=== PATIENT | female | born 1965 | race Caucasian/White ===

== ENCOUNTER → 2016-11-19 | Outpatient (CLI) | payer OTHER ==
--- NOTE | 2016-11-19 15:46 | BD ---
EXAMINATION TYPE: MG DEXA axial skeleton. DATE OF EXAM: 11/19/2016 7:40 AM COMPARISON: NONE CLINICAL HISTORY: Height: 62 IN Weight: 147 LBS FRAX RISK QUESTIONS: Alcohol (3 or more units per day): NO Family History (Parent hip fracture): NO Glucocorticoids (More than 3mos): NO (Ex: prednisone, prednisolone, methylprednisolone, dexamethasone, and hydrocortisone). History of Fracture in Adulthood: NO Secondary Osteoporosis: 1. Type 1 Diabetes: NO 2. Hyperthyroidism: NO 3. Menopause before 45: NO 4. Malnutrition: NO 5. Chronic liver disease: NO Rheumatoid Arthritis: NO Current Tobacco Use: NO RISK FACTORS HISTORY OF: History of Wrist Fracture: YES LEFT When: AGE 40 Surgery to Spine(LUMBAR)Wrist (left): When: LSPINE 2014 AND LEFT WRIST AGE 40 Active: YES Diet low in dairy products/other sources of calcium: YES Postmenopausal woman: AGE 44 ABLATION MEDICATIONS: Additional Medications: PROTONIX, ZOCOR, NEUROTIN EXAM MEASUREMENTS: Bone mineral densitometry was performed using the [employer] System. PT HAD L-SPINE SURGERY IN 2014 Bone mineral density about the R hip (g/cm2): 0.886 Bone mineral density about the L hip (g/cm2): 0.925 T Score values are as follows: -----R Neck: -1.1 -----L Neck: -0.8 -----R Intertrochanter: -0.6 -----L Intertrochanter: -0.2 Bone mineral density has: Decreased -2.0% since study of: 09/09/2014 IMPRESSION: Osteopenia (T Score between -2.5 and -1 as noted by T score values There is slightly increased risk of fracture and the patient may be considered for treatment. Re-Screen 1-2 years.RT HIP NOTE: T-SCORE=SD OF THE YOUNG ADULT MEAN.
== END | disposition home or self-care (01) ==
LOC: RADBDWWP 07:17
PROVIDERS: ATTEND Obstetrics & Gynecology
DX: M85.80 Other specified disorders of bone density and structure, unspecified site (principal)
CPT/HCPCS: 77080

== ENCOUNTER → 2017-10-29 | Outpatient (CLI) | payer OTHER ==
--- NOTE | 2017-10-29 14:18 | MM ---
Reason for exam: screening (asymptomatic). Last mammogram was performed 1 year and 1 month ago. Physical Findings: A clinical breast exam by your physician is recommended on an annual basis and results should be correlated with mammographic findings. MG 3D Screening Mammo W/Cad Bilateral CC and MLO view(s) were taken. Prior study comparison: September 16, 2016, bilateral MG 3d screening mammo w/cad. September 11, 2015, bilateral MG 3d screening mammo w/cad. The breast tissue is heterogeneously dense. This may lower the sensitivity of mammography. There is no discrete abnormality. No significant changes when compared with prior studies. ASSESSMENT: Negative, BI-RAD 1 RECOMMENDATION: Routine screening mammogram of both breasts in 1 year.
== END | disposition home or self-care (01) ==
LOC: RADMAMWWP 09:14
PROVIDERS: ATTEND Obstetrics & Gynecology
DX: Z12.31 Encounter for screening mammogram for malignant neoplasm of breast (principal)
CPT/HCPCS: 77063; 77067

== ENCOUNTER → 2018-05-18 | Outpatient (CLI) | payer OTHER ==
--- NOTE | 2018-05-18 13:39 | MR ---
EXAMINATION TYPE: MR brain wo/w con DATE OF EXAM: 05/18/2018 COMPARISON: None HISTORY: Tremors TECHNIQUE: Multiplanar, multisequence images of the brain and brainstem is performed without and with IV contras t, utilizing 7 mL intravenous Gadavist . FINDINGS: Diffusion weighted images demonstrate no evidence of a recent infarct or other diffusion ab normality. The ventricular system and cisternal spaces are normal in size and appearance. The brain volume is age appropriate. Midline structures demonstrate normal morphology. Cerebellar tonsils are low-lying in position measuring approximately 1 to 2 mm below the foramen magn um. Post contrast images demonstrate no abnormal enhancement. The dural venous sinuses appear patent. Changes of chronic sinusitis noted. There is a nodular area of enhancement involving the inferior margin of the left cerebellar hemispher e measuring 7 mm. Too small to characterize may be related to vascular structure. White matter: There are approximately 15 focal areas of abnormal signal scattered throughout the white matter. All measure 5 mm or less. No enhancing lesions. No callosal lesions. IMPRESSION: 1. Nonspecific white matter changes. Differential diagnosis would include remote microvascular ischem ia, migraine headaches, hypertension, or demyelinating process. 2. There is a nodular area area of enhancement involving the left inferior cerebellar hemisphere whic h may be secondary to vascular anomaly. Small enhancing lesion such as meningioma in the differential diagnosis. Recommend MRA. Additional, follow-up 6 month MRI recommended to confirm stability. 3. Low-lying cerebellar tonsils with no evidence of tonsillar beaking.
== END | disposition home or self-care (01) ==
LOC: RADMRIMAIN 12:40
PROVIDERS: ATTEND Family Medicine
DX: R90.89 Other abnormal findings on diagnostic imaging of central nervous system (principal); G93.89 Other specified disorders of brain
CPT/HCPCS: 70553; A9581

== ENCOUNTER → 2018-07-28 | Outpatient (CLI) | payer OTHER ==
--- NOTE | 2018-07-28 12:59 | US ---
EXAMINATION TYPE: US abdomen complete DATE OF EXAM: 07/28/2018 COMPARISON: US 2009 CLINICAL HISTORY: R94.5 Abn liver function test; prior US showed gallbladder wall polyp EXAM MEASUREMENTS: Liver Length: 13.2 cm Gallbladder Wall: 0.2 cm CBD: 0.6 cm Spleen: 8.6 cm Right Kidney: 9.3 x 4.8 x 3.5 cm Left Kidney: 10.3 x 5.5 x 5.5 cm Pancreas: Heterogeneous Liver: wnl Gallbladder: posterior wall polyp noted = 0.8 x 0.6 x 0.5cm Evidence for sonographic Nolasco's sign: no CBD: wnl Spleen: wnl Right Kidney: wnl Left Kidney: wnl Upper IVC: wnl Abd Aorta: size is wnl; hyperechoic intimal wall thickening noted mid aorta The visualized liver is homogenous. The intrahepatic portion of the IVC and proximal abdominal aorta are within normal limits. Common bile duct is unremarkable. No shadowing mobile gallstones are seen . The visualized portions of the pancreas are homogenous. The spleen is unremarkable. Kidneys are s ymmetric and free of hydronephrosis. No renal lesions are seen. IMPRESSION: No worrisome intrahepatic mass or intrahepatic ductal dilatation is seen.
== END | disposition home or self-care (01) ==
LOC: RADUSWWP 10:18
PROVIDERS: ATTEND Family Medicine
DX: R79.89 Other specified abnormal findings of blood chemistry (principal)
CPT/HCPCS: 76700

== ENCOUNTER → 2018-11-25 | Outpatient (CLI) | payer OTHER ==
--- NOTE | 2018-11-25 07:44 | MR ---
EXAMINATION TYPE: MR angio head wo con DATE OF EXAM: 11/25/2018 COMPARISON: MRI 05/18/2018 HISTORY: Tremors / Vascular malformation TECHNIQUE: Utilizing 3-D [id number] intracranial MRA of the [place] of [place] was performed. FINDINGS: The vertebrobasilar and carotid systems are patent. There is a persistent rounded area signal corres ponding to the CT abnormality within the left cerebellar hemisphere corresponding to the MRI abnormal ity. Appears be related to a branch of the left vertebral artery and a small aneurysm would be the di fferential diagnosis. Tiny vascular anomaly also a consideration. Findings stable from prior MRI. IMPRESSION: 1. Small focal area of rounded signal corresponding to the MRI abnormality is likely vascular in ez ology may represent a small aneurysm off a branch vessel of the left vertebral artery or possibly a t iny vascular anomaly. Measures approximately 3 mm. Recommend a follow-up 6 month MRI MRA to confirm stability and exclude other etiologies including tiny neoplasm.
== END | disposition home or self-care (01) ==
LOC: RADMRIMAIN 06:09
PROVIDERS: ATTEND Internal Medicine Sleep Medicine
DX: Q27.9 Congenital malformation of peripheral vascular system, unspecified (principal)
CPT/HCPCS: 70544

== ENCOUNTER → 2019-02-10 | Outpatient (CLI) | payer OTHER ==
--- NOTE | 2019-02-10 09:25 | BD ---
EXAMINATION TYPE: Axial Bone Density DATE OF EXAM: 02/10/2019 COMPARISON: 11/19/2016 CLINICAL HISTORY: Z13.820, M89.9 Height: 62 IN Weight: 146 LBS RISK FACTORS HISTORY OF: History of Wrist Fracture: YES LEFT WRIST When: AGE 40 Surgery to Spine\Wrist (left): L SPINE SURGERY AGE 49 ; LT WRIST SURGERY AGE 40 Family History of Osteoporosis: YES MOTHER Active: YES Diet low in dairy products/other sources of calcium: YES Postmenopausal woman: AGE 49 MEDICATIONS: Additional Medications: CALCIUM, SIMVASTATIN, PROTONIX, MAGNESIUM EXAM MEASUREMENTS: Bone mineral densitometry was performed using the [employer] System. Bone mineral density about the R hip (g/cm2): 0.837 Bone mineral density about the L hip (g/cm2): 0.880 T Score values are as follows: -----R Neck: -1.4 -----L Neck: -1.1 -----R Total: -0.5 -----L Total: -0.1 Bone mineral density has: DECREASED -6.5% since study of: 11/19/2016 Bone mineral density about the R Wrist (g/cm2): 0.670 T Score values are as follows: -----Dist. R+U: -0.3 -----Prox. R+U: 0.4 -----Radius total: -0.1 Bone mineral density BASELINE IMPRESSION: Osteopenia (T Score between -2.5 and -1). There is slightly increased risk of fracture and the patient may be considered for treatment. Re-Screen 2-5 years. NOTE: T-SCORE=SD OF THE YOUNG ADULT MEAN.
--- NOTE | 2019-02-11 10:34 | MM ---
Reason for exam: screening (asymptomatic). Last mammogram was performed 1 year and 3 months ago. History: Patient is postmenopausal. Physical Findings: A clinical breast exam by your physician is recommended on an annual basis and results should be correlated with mammographic findings. MG 3D Screening Mammo W/Cad Bilateral CC and MLO view(s) were taken. Prior study comparison: October 29, 2017, bilateral MG 3d screening mammo w/cad. September 16, 2016, bilateral MG 3d screening mammo w/cad. The breast tissue is heterogeneously dense. This may lower the sensitivity of mammography. No significant changes when compared with prior studies. ASSESSMENT: Benign, BI-RAD 2 RECOMMENDATION: Routine screening mammogram of both breasts in 1 year.
== END | disposition home or self-care (01) ==
LOC: RADMAMWWP 07:24
PROVIDERS: ATTEND Obstetrics & Gynecology
DX: Z12.31 Encounter for screening mammogram for malignant neoplasm of breast (principal); M85.851 Other specified disorders of bone density and structure, right thigh; M85.852 Other specified disorders of bone density and structure, left thigh
CPT/HCPCS: 77063; 77067; 77080

== ENCOUNTER 2019-10-11 12:06 | Emergency (ER) | payer OTHER ==
[2019-10-11 12:59] VITALS: PULSE 74; TEMP 98.1
[2019-10-11] MEDS ORDERED: SODIUM CHLORIDE 0.9% 1,000 ML IV STA (13:32)
[2019-10-11 13:48] LABS: Basophils % (A) 1 %; Eosinophils # (A) 0.1 k/uL (0-0.7); Eosinophils % (A) 1 %; HCT 42.5 % (34.0-46.0); HGB 14.4 gm/dL (11.4-16.0); Lymphocytes % (A) 23 %; MCHC 33.9 g/dL (31.0-37.0); MCV 85.4 fL (80.0-100.0); Mean Platelet Volume 6.7; Monocytes # (A) 0.3 k/uL (0-1.0); Monocytes % (A) 6 %; Neutrophils % (A) 67 %; Platelet Count 309 k/uL (150-450); RBC 4.98 m/uL (3.80-5.40); RDW 12.8 % (11.5-15.5); WBC 4.5 k/uL (3.8-10.6)
[2019-10-11 13:58] LABS: ALT 44 U/L (4-34); AST 38 U/L (14-36); African American GFR (CKD) >90 (>60 ml/min/1.73 sqM); Albumin 4.8 g/dL (3.5-5.0); Alkaline Phosphatase 71 U/L (38-126); Anion Gap 9 mmol/L; Blood Urea Nitrogen 12 mg/dL (7-17); Calcium 10.2 mg/dL (8.4-10.2); Carbon Dioxide 25 mmol/L (22-30); Chloride 106 mmol/L (98-107); Glucose 96 mg/dL (74-99); Non-African American GFR(CKD) >90 (>60 ml/min/1.73 sqM); Potassium 4.1 mmol/L (3.5-5.1); Sodium 140 mmol/L (137-145); Total Bilirubin 0.5 mg/dL (0.2-1.3); Total Protein 7.8 g/dL (6.3-8.2)
[2019-10-11 14:09] LABS: Appearance,Urine Clear (Clear); Bacteria,Urine Occasional /hpf; Bilirubin,Urine Negative (Negative); Blood,Urine Trace (Negative); Color,Urine Light Yellow; Glucose,Urine (UA) Negative (Negative); Ketones,Urine Negative (Negative); Leukocyte Esterase,Urine Negative (Negative); Nitrite,Urine Negative (Negative); Protein,Urine Negative (Negative); RBC,Urine <1 /hpf (0-5); Specific Gravity,Urine 1.007 (1.001-1.035); Squamous Epithelial Cell,Urine 3 /hpf (0-4); Urobilinogen,Urine <2.0 mg/dL (<2.0); WBC,Urine 2 /hpf (0-5)
--- NOTE | 2019-10-11 14:20 | US ---
EXAMINATION TYPE: US gallbladder DATE OF EXAM: 10/11/2019 COMPARISON: US 07/28/2018 CLINICAL HISTORY: epigastric pain, diarrhea. EXAM MEASUREMENTS: Liver Length: 15.1 cm Gallbladder Wall: 0.1 cm CBD: 0.6 cm Right Kidney: 10.0 x 4.5 x 4.7 cm Pancreas: Tail obscured by overlying bowel gas, visualized portions wnl Liver: wnl Gallbladder: Possible polyp visualized measuring 0.4 x 0.4 x 0.5 cm Evidence for sonographic Nolasco's sign: No CBD: wnl Right Kidney: No hydronephrosis or masses seen IMPRESSION: Gallbladder polyps suspected otherwise unremarkable study.
--- NOTE | 2019-10-11 14:42 | CT ---
EXAMINATION TYPE: CT abdomen pelvis w con DATE OF EXAM: 10/11/2019 COMPARISON: None HISTORY: Nausea, diarrhea and abdominal pain. CT DLP: 861.6 mGycm CONTRAST: CT scan of the abdomen and pelvis is performed without Oral Contrast and with IV Contrast, patient in jected with 100 mL of Isovue 300. FINDINGS: LUNG BASES-: No visible nodule. No infiltrate. LIVER/GB: No calcified gallstones. No space occupying hepatic lesion. Biliary tree is of normal ca liber. PANCREAS: No inflammation. No distinct mass. SPLEEN: No splenic enlargement. No lesion seen. ADRENALS: No nodule. No thickening. KIDNEYS/BLADDER: No hydronephrosis. No nephrolithiasis. No distinct renal mass. Urinary bladder g rossly unremarkable. BOWEL: Normal appendix. Mild distention and wall thickening proximal small bowel which may reflect s mall bowel enteritis. No evidence for abscess or free air. GENITAL ORGANS: No gross abnormality. LYMPH NODES: No greater than 1cm abdominal or pelvic lymph nodes are appreciated. AORTA: No significant abnormality. OSSEOUS STRUCTURES: Postoperative changes lumbar spine OTHER: No significant additional abnormality is seen. IMPRESSION: 1. Mild distention and wall thickening proximal small bowel which may reflect small bowel enteritis.
--- NOTE | 2019-10-11 15:25 | ED ---
Abdominal Pain HPI - General Chief Complaint: Abdominal Pain Stated Complaint: nausea/diarrhea/abdominal & back pain Time Seen by Provider: 10/11/19 12:55 Source: patient Mode of arrival: ambulatory Limitations: no limitations - History of Present Illness Initial Comments: The patient is a 54-year-old female with past medical history of GERD who presents to the emergency room with reported abdominal pain. States that it has been present for the past 2 months. She works at the hospital. States that she was at a case management meeting when she had a salad. States that several hours afterward she developed multiple episodes of nonbilious, nonbloody vomiting. States that this lasted for approximately 24 hours. She also had multiple episodes of nonbloody diarrhea. Denies additional sick contacts or recent travel. No antibiotic use. She has associated epigastric abdominal pain. She has not had any further vomiting since the onset 2 months ago however continues to have multiple episodes of diarrhea. States that every time she eats, she will have a bowel movement. She's her primary care doctor who did laboratory studies and a stool sample. Everything was "normal" according to the patient. They did schedule her for colonoscopy in October and gave her follow- up information for a GI doctor. Patient reports that she doesn't want to wait until this appointment. She is interested in having additional imaging done now to facilitate her workup. She denies any abnormal vaginal bleeding or discharge. She had an ablation 10 years ago no longer has menstrual cycles. Denies concern for such transmitted infections. Denies dysuria, hematuria or difficulty voiding. No fevers or chills. Denies any chest pain or shortness of breath. There are no other alleviating, precipitating or modifying factors - Related Data Home Medications Medication Instructions Recorded Confirmed Hydrocodone/Acetaminophen [[place] 1 each PO TID PRN 11/02/14 11/14/14 5-325] Pantoprazole Sodium [Protonix] 40 mg PO QAM 11/02/14 11/14/14 Simvastatin 20 mg PO HS 11/02/14 11/14/14 Previous Rx's Medication Instructions Recorded Diazepam [Valium] 5 mg PO TID PRN #40 tab 11/18/14 HYDROcodone/APAP 7.5-325MG [[place] 1 - 2 each PO Q4H PRN #90 tab 11/18/14 7.5-325] Dicyclomine [Bentyl] 10 mg PO TID PRN #20 capsule 10/11/19 Ondansetron Odt [Zofran Odt] 4 mg PO Q8HR PRN #10 tab 10/11/19 predniSONE 20 mg PO BID #10 tab 10/11/19 Allergies Allergy/AdvReac Type Severity Reaction Status Date / Time Iodinated Contrast Media Allergy Rash/Hives Verified 10/11/19 16:29 Review of Systems ROS Statement: Those systems with pertinent positive or pertinent negative responses have been documented in the HPI. ROS Other: All systems not noted in ROS Statement are negative. Past Medical History Past Medical History: GERD/Reflux, Hyperlipidemia Additional Past Medical History / Comment(s): BACK PAIN RADIATING DOWN RT LEG INTO FOOT,POST MENOPAUSAL > 2 YRS, brain aneursyn and brain tumor History of Any Multi-Drug Resistant Organisms: None Reported Past Surgical History: Back Surgery, Orthopedic Surgery, Uterine Ablation Additional Past Surgical History / Comment(s): LT FOREARM ORIF Past Anesthesia/Blood Transfusion Reactions: No Reported Reaction Past Psychological History: No Psychological Hx Reported Smoking Status: Former smoker Past Alcohol Use History: Occasional Past Drug Use History: None Reported - Past Family History Father Family Medical History: Cancer Additional Family Medical History / Comment(s): LUNG General Exam Limitations: no limitations General appearance: alert, in no apparent distress Head exam: Present: atraumatic, normocephalic, normal inspection Eye exam: Present: normal appearance, PERRL, EOMI. Absent: scleral icterus, conjunctival injection, periorbital swelling ENT exam: Present: normal exam, mucous membranes moist Neck exam: Present: normal inspection. Absent: tenderness, meningismus, lymphadenopathy Respiratory exam: Present: normal lung sounds bilaterally. Absent: respiratory distress, wheezes, rales, rhonchi, stridor Cardiovascular Exam: Present: regular rate, normal rhythm, normal heart sounds. Absent: systolic murmur, diastolic murmur, rubs, gallop, clicks GI/Abdominal exam: Present: soft, tenderness (right upper quadrant abdominal tenderness), normal bowel sounds. Absent: distended, guarding, rebound, rigid Extremities exam: Present: normal inspection, full ROM, normal capillary refill. Absent: tenderness, pedal edema, joint swelling, calf tenderness Back exam: Present: normal inspection Neurological exam: Present: alert, oriented X3, CN II-XII intact Psychiatric exam: Present: normal affect, normal mood Skin exam: Present: warm, dry, intact, normal color. Absent: rash Course Vital Signs 10/11/19 10/11/19 10/11/19 12:55 12:59 13:59 Temperature 98.1 F Pulse Rate 74 Respiratory 18 20 16 Rate Blood Pressure 158/90 O2 Sat by Pulse 98 Oximetry 10/11/19 10/11/19 10/11/19 14:11 14:29 14:30 Temperature Pulse Rate Respiratory Rate Blood Pressure 149/90 O2 Sat by Pulse 96 100 99 Oximetry 10/11/19 10/11/19 10/11/19 14:40 14:50 14:59 Temperature Pulse Rate Respiratory 16 Rate Blood Pressure O2 Sat by Pulse 98 99 Oximetry 10/11/19 10/11/19 10/11/19 15:00 15:10 15:20 Temperature Pulse Rate Respiratory Rate Blood Pressure 150/92 O2 Sat by Pulse 98 99 99 Oximetry 10/11/19 10/11/19 10/11/19 15:30 15:40 15:59 Temperature Pulse Rate Respiratory Rate Blood Pressure O2 Sat by Pulse 99 98 94 L Oximetry 10/11/19 10/11/19 16:23 16:56 Temperature Pulse Rate 74 Respiratory 20 Rate Blood Pressure 152/94 O2 Sat by Pulse 94 L 98 Oximetry Medical Decision Making - Medical Decision Making Upon arrival the patient was placed into room 17. A thorough history of physical exam was performed. IV was established. The patient's was started on a liter bolus of normal saline. I did offer her something for nausea and diarrhea however the patient refused. I did conduct laboratory studies. CBC is normal. Chemistries show a mildly elevated AST at 38 and ALT at 44. Urinalysis shows trace blood with occasional bacteria. Patient does not have symptoms of urinary tract infection and therefore we will hold off until culture returns. CT of the patient's abdomen and pelvis demonstrates mild distention and wall thickening of the proximal small bowel which may relate to small bowel enteritis. Gallbladder ultrasound demonstrates gallbladder polyps. I discussed these results with the patient. At this time the patient will be discharged home and given prescriptions for Bentyl and Zofran. She is to follow-up with her primary care doctor in 2-4 days. She should have a HIDA scan performed because of the distribution of her pain. She also needs to see the GI doctor for a colonoscopy. Return to the emergency room for any new or worsening symptoms. Patient was in agreement with the treatment plan and she was discharged home in stable condition the patient was pending discharge when she did note some hives to the right side of her neck. She denies any respiratory issues. The patient was given 125 mg of Solu-Medrol, 20 mg of Pepcid and 10 mg of Claritin. Patient is refusing Benadryl because she does not want to be sleepy. I reevaluated the patient she continues to demonstrate no respiratory compromise. I did prescribe her prednisone to take for the next 5 days. I informed her this may upset her stomach worse. She is to also take an Ivonne daily which she does have at home. The patient is any new or worsening symptoms she should return to the emergency room. Patient was discharged in stable condition - Lab Data Result diagrams: 10/11/19 13:15 10/11/19 13:15 Lab Results 10/11/19 10/11/19 10/11/19 Range/Units 13:15 13:15 13:15 WBC 4.5 (3.8-10.6) k/uL RBC 4.98 (3.80-5.40) m/uL Hgb 14.4 (11.4-16.0) gm/dL Hct 42.5 (34.0-46.0) % MCV 85.4 (80.0-100.0) fL MCH 29.0 (25.0-35.0) pg MCHC 33.9 (31.0-37.0) g/dL RDW 12.8 (11.5-15.5) % Plt Count 309 (150-450) k/uL Neutrophils % 67 % Lymphocytes % 23 % Monocytes % 6 % Eosinophils % 1 % Basophils % 1 % Neutrophils # 3.0 (1.3-7.7) k/uL Lymphocytes # 1.0 (1.0-4.8) k/uL Monocytes # 0.3 (0-1.0) k/uL Eosinophils # 0.1 (0-0.7) k/uL Basophils # 0.0 (0-0.2) k/uL Sodium 140 (137-145) mmol/L Potassium 4.1 (3.5-5.1) mmol/L Chloride 106 (98-107) mmol/L Carbon Dioxide 25 (22-30) mmol/L Anion Gap 9 mmol/L BUN 12 (7-17) mg/dL Creatinine 0.75 (0.52-1.04) mg/dL Est GFR (CKD-EPI)AfAm >90 (>60 ml/min/1.73 sqM) Est GFR (CKD-EPI)NonAf >90 (>60 ml/min/1.73 sqM) Glucose 96 (74-99) mg/dL Plasma Lactic Acid Claude 0.7 (0.7-2.0) mmol/L Calcium 10.2 (8.4-10.2) mg/dL Total Bilirubin 0.5 (0.2-1.3) mg/dL AST 38 H (14-36) U/L ALT 44 H (4-34) U/L Alkaline Phosphatase 71 (38-126) U/L Total Protein 7.8 (6.3-8.2) g/dL Albumin 4.8 (3.5-5.0) g/dL Lipase 68 (23-300) U/L Urine Color Urine Appearance (Clear) Urine pH (5.0-8.0) Ur Specific Norris (1.001-1.035) Urine Protein (Negative) Urine Glucose (UA) (Negative) Urine Ketones (Negative) Urine Blood (Negative) Urine Nitrite (Negative) Urine Bilirubin (Negative) Urine Urobilinogen (<2.0) mg/dL Ur Leukocyte Esterase (Negative) Urine RBC (0-5) /hpf Urine WBC (0-5) /hpf Ur Squamous Epith Cells (0-4) /hpf Urine Bacteria (None) /hpf 10/11/19 Range/Units 13:40 WBC (3.8-10.6) k/uL RBC (3.80-5.40) m/uL Hgb (11.4-16.0) gm/dL Hct (34.0-46.0) % MCV (80.0-100.0) fL MCH (25.0-35.0) pg MCHC (31.0-37.0) g/dL RDW (11.5-15.5) % Plt Count (150-450) k/uL Neutrophils % % Lymphocytes % % Monocytes % % Eosinophils % % Basophils % % Neutrophils # (1.3-7.7) k/uL Lymphocytes # (1.0-4.8) k/uL Monocytes # (0-1.0) k/uL Eosinophils # (0-0.7) k/uL Basophils # (0-0.2) k/uL Sodium (137-145) mmol/L Potassium (3.5-5.1) mmol/L Chloride (98-107) mmol/L Carbon Dioxide (22-30) mmol/L Anion Gap mmol/L BUN (7-17) mg/dL Creatinine (0.52-1.04) mg/dL Est GFR (CKD-EPI)AfAm (>60 ml/min/1.73 sqM) Est GFR (CKD-EPI)NonAf (>60 ml/min/1.73 sqM) Glucose (74-99) mg/dL Plasma Lactic Acid Claude (0.7-2.0) mmol/L Calcium (8.4-10.2) mg/dL Total Bilirubin (0.2-1.3) mg/dL AST (14-36) U/L ALT (4-34) U/L Alkaline Phosphatase (38-126) U/L Total Protein (6.3-8.2) g/dL Albumin (3.5-5.0) g/dL Lipase (23-300) U/L Urine Color Light Yellow Urine Appearance Clear (Clear) Urine pH 5.0 (5.0-8.0) Ur Specific Norris 1.007 (1.001-1.035) Urine Protein Negative (Negative) Urine Glucose (UA) Negative (Negative) Urine Ketones Negative (Negative) Urine Blood Trace H (Negative) Urine Nitrite Negative (Negative) Urine Bilirubin Negative (Negative) Urine Urobilinogen <2.0 (<2.0) mg/dL Ur Leukocyte Esterase Negative (Negative) Urine RBC <1 (0-5) /hpf Urine WBC 2 (0-5) /hpf Ur Squamous Epith Cells 3 (0-4) /hpf Urine Bacteria Occasional H (None) /hpf - EKG Data EKG Comments: EKG demonstrates a normal sinus rhythm with a ventricular rate of 63. ND interval 164. QRS 68. QTC of 417. No acute ST segment elevations or depressions concerning for ischemic changes Disposition Clinical Impression: Abdominal pain, Nausea & vomiting, Acute diarrhea Disposition: HOME SELF-CARE Condition: Stable Instructions (If sedation given, give patient instructions): Abdominal Pain (ED) Additional Instructions: please follow-up with your primary care doctor in 2-4 days. I recommend the HIDA scan. Return to the emergency room for any new or worsening symptoms Prescriptions: Dicyclomine [Bentyl] 10 mg PO TID PRN #20 capsule PRN Reason: Diarrhea predniSONE 20 mg PO BID #10 tab Ondansetron Odt [Zofran Odt] 4 mg PO Q8HR PRN #10 tab PRN Reason: Nausea Is patient prescribed a controlled substance at d/c from ED?: No Referrals: Obie Elder MD [Primary Care Provider] - 1-2 days Time of Disposition: 15:25
[2019-10-11] MEDS ORDERED: FAMOTIDINE 20 MG/2 ML VIAL IV STA (16:28)
[2019-10-11] MEDS ORDERED: methylPREDNISolone SOD SUCCI 125 MG/2 ML VIAL IV STA (16:28)
[2019-10-11] MEDS ORDERED: LORATADINE 10 MG TAB PO STA (16:29)
[2019-10-11 16:58] VITALS: BP 152/94; RESP 20
== END 2019-10-11 16:58 | disposition home or self-care (01) ==
LOC: EC 12:06
DX: R10.13 Epigastric pain (principal); R11.2 Nausea with vomiting, unspecified; R19.7 Diarrhea, unspecified; K82.4 Cholesterolosis of gallbladder; K21.9 Gastro-esophageal reflux disease without esophagitis; E78.5 Hyperlipidemia, unspecified; Z79.899 Other long term (current) drug therapy; Z91.041 Radiographic dye allergy status; Z87.891 Personal history of nicotine dependence
CPT/HCPCS: 99284; 96374; 96375; 96361; 36415; 93005; 80053; 83605; 83690; 85025; 81001; 76705; 74177; J2930; Q9967

== ENCOUNTER → 2020-05-19 | Outpatient (CLI) | payer OTHER ==
--- NOTE | 2020-05-22 09:15 | MM ---
Reason for exam: screening (asymptomatic). Last mammogram was performed 1 year and 3 months ago. History: Patient is postmenopausal. Physical Findings: A clinical breast exam by your physician is recommended on an annual basis and results should be correlated with mammographic findings. MG 3D Screening Mammo W/Cad Bilateral CC and MLO view(s) were taken. Prior study comparison: February 10, 2019, bilateral MG 3d screening mammo w/cad. October 29, 2017, bilateral MG 3d screening mammo w/cad. The breast tissue is heterogeneously dense. This may lower the sensitivity of mammography. There is no discrete abnormality. ASSESSMENT: Negative, BI-RAD 1 RECOMMENDATION: Routine screening mammogram of both breasts in 1 year.
== END | disposition home or self-care (01) ==
LOC: RADMAMWWP 09:02
PROVIDERS: ATTEND Obstetrics & Gynecology
DX: Z12.31 Encounter for screening mammogram for malignant neoplasm of breast (principal)
CPT/HCPCS: 77063; 77067

== ENCOUNTER → 2021-10-24 | Outpatient (CLI) | payer OTHER ==
--- NOTE | 2021-10-24 19:08 | BD ---
EXAMINATION TYPE: Axial Bone Density DATE OF EXAM: 10/24/2021 COMPARISON: 2019 CLINICAL HISTORY: Postmenopausal screening Height: 5 FT 3 IN Weight: 164 FRAX RISK QUESTIONS: Alcohol (3 or more units per day): NO Family History (Parent hip fracture): NO Glucocorticoids (More than 3mos): NO (Ex: prednisone, prednisolone, methylprednisolone, dexamethasone, and hydrocortisone). History of Fracture in Adulthood: YES Secondary Osteoporosis: 1. Type 1 Diabetes: NO 2. Hyperthyroidism: NO 3. Menopause before 45: NO 4. Malnutrition: NO 5. Chronic liver disease: NO Rheumatoid Arthritis: NO Current Tobacco Use: NO RISK FACTORS HISTORY OF: History of Wrist Fracture: LEFT When: AGE 40 Surgery to Spine/Hip(right/left)/Wrist (right/left): LSPINE AGE 49 LT WRIST AGE 40 Family History of Osteoporosis: NO Active: YES Diet low in dairy products/other sources of calcium: NO Postmenopausal woman: AGE 49 Take estrogen and/or progesterone medications: NONE Lost more than 2 inches in height since high school: NO Frequent falls: NO Poor Health: GOOD Hyperparathyroidism: NO Adrenal Insufficiency: NO MEDICATIONS: Thyroid Medications: YES Which medication: SYNTHROID How Lon-4 MONTHS Additional Medications: CRESTOR, PROTONIX, SYNTHROID Additional History: EXAM MEASUREMENTS: Bone mineral density about the R hip (g/cm2): 0.826 Bone mineral density about the L hip (g/cm2): 0.887 T Score values are as follows: -----R Neck: -1.5 -----L Neck: -1.1 -----R Total: -0.5 -----L Total: 0.0 Bone mineral density has: INCREASED 0.6 % since study of: 2018 Bone mineral density about the R Wrist (g/cm2): 0.640 T Score values are as follows: -----Dist. R+U: -0.8 -----Prox. R+U: 0.1 -----Radius total: -0.6 Bone mineral density has: DECREASED -2.8 % since study of: 2019 IMPRESSION: Osteopenia (T Score between -2.5 and -1). There is slightly increased risk of fracture and the patient may be considered for treatment. Re-Screen 2-5 years. NOTE: T-SCORE=SD OF THE YOUNG ADULT MEAN.
--- NOTE | 2021-10-25 10:53 | MM ---
Reason for exam: screening (asymptomatic). Last mammogram was performed 1 year and 5 months ago. History: Patient is postmenopausal. Physical Findings: A clinical breast exam by your physician is recommended on an annual basis and results should be correlated with mammographic findings. MG 3D Screening Mammo W/Cad Bilateral CC and MLO view(s) were taken. XCCL view(s) were taken of the left breast. Prior study comparison: May 19, 2020, bilateral MG 3d screening mammo w/cad. February 10, 2019, bilateral MG 3d screening mammo w/cad. There are scattered fibroglandular densities. There is no discrete abnormality. ASSESSMENT: Negative, BI-RAD 1 RECOMMENDATION: Routine screening mammogram of both breasts in 1 year.
== END | disposition home or self-care (01) ==
LOC: RADMAMWWP 08:03
PROVIDERS: ATTEND Obstetrics & Gynecology
DX: Z12.31 Encounter for screening mammogram for malignant neoplasm of breast (principal); M85.88 Other specified disorders of bone density and structure, other site; Z78.0 Asymptomatic menopausal state
CPT/HCPCS: 77063; 77067; 77080

== ENCOUNTER → 2022-10-25 | Outpatient (CLI) | payer OTHER ==
--- NOTE | 2022-10-28 07:55 | MM ---
Reason for Exam: Screening (asymptomatic). Last screening mammogram was performed 12 month(s) ago. Patient History: Menarche at age 10. First Full-Term at age 24. Postmenopausal. Risk Values: Geneva 5 year model risk: 1.6%. NCI Lifetime model risk: 9.3%. Prior Study Comparison: 02/10/2019 Bilateral Screening Mammogram, [facility]. 05/19/2020 Bilateral Screening Mammogram, [facility]. 10/24/2021 Bilateral Screening Mammogram, [facility]. Tissue Density: There are scattered fibroglandular densities. Findings: Analyzed By CAD. Benign-appearing bilateral axillary lymph nodes are redemonstrated. There is no suspicious new group of microcalcifications or new suspicious mass in either breast. Overall Assessment: Negative, BI-RAD 1 Management: Screening Mammogram of both breasts in 1 year. A clinical breast exam by your physician is recommended on an annual basis and results should be correlated with mammographic findings. Electronically signed and approved by: Vincent Núñez M.D.
== END | disposition home or self-care (01) ==
LOC: RADMAMWWP 07:30
PROVIDERS: ATTEND Obstetrics & Gynecology
DX: Z12.31 Encounter for screening mammogram for malignant neoplasm of breast (principal); Z78.0 Asymptomatic menopausal state
CPT/HCPCS: 77063; 77067

== ENCOUNTER → 2023-11-21 | Outpatient (CLI) | payer OTHER ==
--- NOTE | 2023-11-21 10:07 | MM ---
Reason for Exam: Screening (asymptomatic). Last mammogram was performed 1 year(s) and 1 month(s) ago. Patient History: Menarche at age 10. First Full-Term at age 24. Postmenopausal. Patient has history of breast feeding. Risk Values: Geneva 5 year model risk: 1.7%. NCI Lifetime model risk: 9.1%. Prior Study Comparison: 10/29/2017 Bilateral Screening Mammogram, [facility]. 02/10/2019 Bilateral Screening Mammogram, [facility]. 05/19/2020 Bilateral Screening Mammogram, [facility]. 10/24/2021 Bilateral Screening Mammogram, [facility]. 10/25/2022 Bilateral MG 3D screening mammo w/cad, [facility]. Tissue Density: The breast tissue is heterogeneously dense. This may lower the sensitivity of mammography. Findings: Analyzed By CAD. There is no suspicious group of microcalcifications or new suspicious mass in either breast. Overall Assessment: Negative, BI-RAD 1 Management: Screening Mammogram of both breasts in 1 year. . Patient should continue monthly self-breast exams. A clinical breast exam by your physician is recommended on an annual basis. This exam should not preclude additional follow-up of suspicious palpable abnormalities. Note on Geneva scores and lifetime risk: 1. A Geneva score greater than 3% is considered moderate risk. If this is the case, consider specialist referral to assess eligibility for a risk reducing agent. 2. If overall lifetime risk for the development of breast cancer is 20% or higher, the patient may qualify for future screening with alternating mammogram and breast MRI. Electronically signed and approved by: Calvin Jensen M.D. Radiologis
--- NOTE | 2023-11-21 12:37 | BD ---
EXAMINATION TYPE: Axial Bone Density DATE OF EXAM: 11/21/2023 CLINICAL HISTORY: 58 years old Female. ICD-10 CODE: M85.88 DISORDER OF BONE Height: 62.25 Weight: 162 FRAX RISK QUESTIONS: History of Fracture in Adulthood: yes Secondary Osteoporosis: no RISK FACTORS HISTORY OF: History of Wrist Fracture: left When: age 40 Surgery to Spine/Wrist (left): yes When: age 49 and 40 MEDICATIONS: Thyroid Medications: yes Which medication: Synthroid How Lon+ years EXAM MEASUREMENTS: Bone mineral densitometry was performed using the [employer] System. Bone mineral density about the R hip (g/cm2): 0.966 Bone mineral density about the L hip (g/cm2): 1.004 T Score values are as follows: -----R Neck: -2.0 -----L Neck: -1.2 -----R Total: -0.3 -----L Total: 0.0 Z Score values are as follows: -----R Neck: -1.0 -----L Neck: -0.2 -----R Total: 0.3 -----L Total: 0.6 Bone mineral density has: Increased 0.7% since study of: 10/24/2021 Bone mineral density about the R Wrist (g/cm2): 0.657 T Score values are as follows: -----Dist. R+U: -0.9 -----Prox. R+U: 0.3 -----Radius total: -0.3 Z Score values are as follows: -----Dist. R+U: 0.0 -----Prox. R+U: 1.1 -----Radius total: 0.6 Bone mineral density has: Increased 2.3% since study of: 10/24/2021 FRAX%s: The graph provided illustrates a 15.8% chance for a major osteoporotic fx and a 2.1% chance f or the hips probability for fx in 10 years time. IMPRESSION: Normal (Values between +1 and -1 indicate normal bone mass). Consider repeating this study in 5 year s or sooner if there is some new clinical indication. NOTE: T-SCORE=SD OF THE YOUNG ADULT MEAN.
== END | disposition home or self-care (01) ==
LOC: RADMAMWWP 06:55
PROVIDERS: ATTEND Obstetrics & Gynecology
DX: Z12.31 Encounter for screening mammogram for malignant neoplasm of breast (principal); M85.89 Other specified disorders of bone density and structure, multiple sites; R92.333 Mammographic heterogeneous density, bilateral breasts; Z78.0 Asymptomatic menopausal state
CPT/HCPCS: 77063; 77067; 77080